=== PATIENT | male | born 2000 | race Caucasian/White ===

== ENCOUNTER 2019-05-10 18:03 | Emergency (ER) | payer MEDICAID ==
[2019-05-10] MEDS ORDERED: PREDNISONE 20 MG TABLET PO ONE (19:02)
[2019-05-10] MEDS ORDERED: IPRATROPIUM/ALBUTEROL 0.5-2.5 MG/3 ML AMPUL NEB ONE (19:02)
--- NOTE | 2019-05-10 19:31 | RADIOLOGY REPORT (SQ) ---
EXAM DESCRIPTION: CHEST 2 VIEWS COMPLETED DATE/TIME: 05/10/2019 7:17 pm REASON FOR STUDY: SOB COMPARISON: None. EXAM PARAMETERS: NUMBER OF VIEWS: two views TECHNIQUE: Digital Frontal and Lateral radiographic views of the chest acquired. RADIATION DOSE: NA LIMITATIONS: none FINDINGS: LUNGS AND PLEURA: No acute infiltrates or effusions. MEDIASTINUM AND HILAR STRUCTURES: No masses or contour abnormalities. HEART AND VASCULAR STRUCTURES: The heart pulmonary vasculature normal. HARDWARE: None in the chest. OTHER: No other significant finding. IMPRESSION: NO ACUTE DISEASE. TECHNICAL DOCUMENTATION: JOB ID: [id number] [id number] 2010 [employer]- All Rights Reserved Reading location - IP/workstation name: [email or web address]
[2019-05-10 20:05] VITALS: BP 138/66
--- NOTE | 2019-05-10 20:07 | ER Document Report ---
ED Respiratory Problem - General Chief Complaint: Shortness Of Breath Stated Complaint: DIFFICULTY BREATHING Time Seen by Provider: 05/10/19 18:46 Notes: Patient is a 18-year-old male presents to the emergency department for respiratory distress. Patient states he does have a history of asthma states he does use pro-air. States for the last week or so he has noticed an increase in his respiratory distress. Patient also complains of generalized cough and congestion. Patient's denying any fevers. States he is currently taking Augmentin for sinusitis. Patient states at times when he tries to take a deep breath he has some tightness in the center of his chest but otherwise just sitting in triage he has no chest pain. Past medical history: Asthma medications: Pro-air Allergies: None TRAVEL OUTSIDE OF THE [place] IN LAST 30 DAYS: No - Related Data Allergies/Adverse Reactions: No Known Allergies Allergy (Verified 05/10/19 18:06) Past Medical History - General Information source: Patient, Parent - Social History Smoking Status: Never Smoker Family History: Reviewed & Not Pertinent Patient has suicidal ideation: No Patient has homicidal ideation: No Pulmonary Medical History: Reports: Hx Asthma Renal/ Medical History: Denies: Hx Peritoneal Dialysis Review of Systems - Review of Systems Constitutional: denies: Fever EENT: See HPI Cardiovascular: See HPI Respiratory: See HPI Gastrointestinal: No symptoms reported Genitourinary: No symptoms reported Male Genitourinary: No symptoms reported Musculoskeletal: No symptoms reported Skin: No symptoms reported Hematologic/Lymphatic: No symptoms reported Neurological/Psychological: No symptoms reported Physical Exam - Vital signs Vitals: Temp Pulse Resp BP Pulse Ox 98.2 F 89 18 167/84 H 99 05/10/19 18:10 05/10/19 18:10 05/10/19 18:10 05/10/19 18:10 05/10/19 18:10 - Notes Notes: GENERAL: Alert, interacts well. No acute distress. HEAD: Normocephalic, atraumatic. No frontal or maxillary sinus tenderness noted EYES: Pupils equal, round, and reactive to light. Extraocular movements intact. ENT: Oral mucosa moist, tongue midline. Nares patent, TM's intact, nonerythematous, nonbulging bilaterally. Pharynx within normal limits no palatal petechiae noted. NECK: Full range of motion. Supple. Trachea midline. No lymphadenopathy appreciated LUNGS: End expiratory wheeze to auscultation bilateral bases, no discernible rales, or rhonchi. No respiratory distress. HEART: Regular rate and rhythm. No murmur Chest: No crepitus felt, no erythema, ecchymosis noted anterior posterior chest wall. ABDOMEN: Soft, non-tender. Non-distended. Bowel sounds present in all 4 quadrants. EXTREMITIES: Moves all 4 extremities spontaneously. No edema, normal radial and dorsalis pedis pulses bilaterally. No cyanosis. BACK: no cervical, thoracic, lumbar midline tenderness. No saddle anesthesia, normal distal neurovascular exam. NEUROLOGICAL: Alert and oriented x3. Normal speech. cranial nerves II through XII grossly intact. PSYCH: Normal affect, normal mood. SKIN: Warm, dry, normal turgor. No rashes or lesions noted. Course - Re-evaluation Re-evalutation: 05/10/19 20:05 Chest X-Ray 05/10/19 18:46 IMPRESSION: NO ACUTE DISEASE. Mother is requesting an EKG at this time. Mother states "it was made me feel a lot better." Mother's denying any cardiac history for the patient. Patient's EKG shows sinus rhythm rate of 74, QTc 400, no ST segment elevations or depressions noted. After DuoNeb treatment patient states he overall feels a lot better. States he feels as though he can take a deep breath. Discussed continued use of pro-air inhaler with added steroids. At this time will discharge with return precautions and follow-up recommendations. Verbal discharge instructions given a the bedside and opportunity for questions given. Medication warnings reviewed. Patient is in agreement with this plan and has verbalized understanding of return precautions and the need for primary care follow-up in the next 24-72 hours. This medical record was dictated with voice recognizing software. There may be grammatical, syntax errors that are unintended. - Vital Signs Vital signs: Temp Pulse Resp BP Pulse Ox 98.2 F 89 18 167/84 H 99 05/10/19 18:10 05/10/19 18:10 05/10/19 18:10 05/10/19 18:10 05/10/19 18:10 Discharge - Discharge Clinical Impression: Asthma Qualifiers: Asthma severity: mild Asthma persistence: unspecified Asthma complication type: with acute exacerbation Qualified Code(s): J45.901 - Unspecified asthma with (acute) exacerbation Condition: Stable Disposition: HOME, SELF-CARE Instructions: Asthma ([facility]) Additional Instructions: As we discussed you have been seen and treated in the emergency department for an exacerbation of your asthma. Please use your pro-air inhaler 1 to 2 puffs every 4 hours as needed for the next couple of days. Please also make sure taking prednisone steroids as prescribed. Please make sure you follow-up with your primary care provider in the next 24 to 48 hours. Please return to the emergency room for any further concerns. Prescriptions: Prednisone [Deltasone 20 mg Tablet] 3 tab PO DAILY 5 Days tablet Forms: Return to Work
--- NOTE | 2019-05-10 21:54 | EKG REPORT ---
SEVERITY:- NORMAL ECG - SINUS RHYTHM : Confirmed by: Li Glez 10-May-2019 21:53:40
== END 2019-05-10 20:12 | disposition home or self-care (01) ==
LOC: ER 18:03
DX: J45.901 Unspecified asthma with (acute) exacerbation (principal); R06.02 Shortness of breath
CPT/HCPCS: 93005; 94640; 99285; 71046; 93010; J7512; J7620